=== PATIENT | male | born 1990 | race Caucasian/White ===

== ENCOUNTER 2017-02-03 05:58 | Day surgery (SDC) | payer BC ==
--- NOTE | ~2017-02-03 | EGD ---
EGD REPORT [facility] [address] [address] NAME: RANDY MUNOZ : [birth year] STATUS : REG [facility] [place] PAT#: [id number] AGE: 26 ADM/REG DATE : 02/03/17 MR#: [id number] REPORT SERV DATE: 02/03/17 DICTATED BY: MADI ARCINIEGA DATE: 02/03/17 REPORT STATUS : Draft [facility]ANSCRIBED BY: [facility] DATE: 02/03/17 Endoscopy Center Patient Name: Randy Munoz Date of : 1990 Attending MD: MADI ARCINIEGA, Procedure Date No Time: 02/03/2017 Procedure: Upper GI endoscopy Indications: Endoscopy to assess diarrhea in patient suspected of having celiac disease, Endoscopy to assess diarrhea in patient suspected of having disease of the small-bowel Referring MD: Vijay Maxwell Medicines: Monitored Anesthesia Care Complications: No immediate complications. Estimated blood loss: None. Procedure: Pre-Anesthesia Assessment: - ASA Grade Assessment: III - A patient with severe systemic disease. After obtaining informed consent, the endoscope was passed under direct vision. Throughout the procedure, the patient's blood pressure, pulse, and oxygen saturations were monitored continuously. The GIF [id number] was introduced through the mouth, and advanced to the second part of duodenum. The upper GI endoscopy was accomplished without difficulty. The patient tolerated the procedure well. Findings: The esophagus was normal. Patchy mild inflammation characterized by erythema was found in the entire examined stomach. Biopsies were taken with a cold forceps for histology. Verification of patient identification for the specimen was done. Estimated blood loss was minimal. The cardia and gastric fundus were normal on retroflexion. The examined duodenum was normal. Multiple biopsies were obtained in the 2nd part of the duodenum with cold forceps for histology. Impression: - Normal esophagus. - Gastritis. Biopsied. - Normal examined duodenum. - Multiple biopsies were obtained in the 2nd part of the duodenum. Recommendation: - Patient has a contact number available for emergencies. The signs and symptoms of potential delayed complications were discussed with the patient. Return to normal activities tomorrow. Written discharge EGD REPORT [facility] [address] [address] NAME: RANDY MUNOZ : [birth year] STATUS : REG [facility]#: [id number] AGE: 26 ADM/REG DATE : 02/03/17 MR#: [id number] REPORT SERV DATE: 02/03/17 DICTATED BY: MADI ARCINIEGA DATE: 02/03/17 REPORT STATUS : Draft TRANSCRIBED BY: [employer] DATE: 02/03/17 instructions were provided to the patient. - Return to previous diet. - Continue present medications. - Await pathology results. Procedure Code(s): --- Professional --- 43407, Esophagogastroduodenoscopy, flexible, transoral; with biopsy, single or multiple Diagnosis Code(s): --- Professional --- K29.70, Gastritis, unspecified, without bleeding R19.7, Diarrhea, unspecified CPT copyright 2013 [employer]. All rights reserved. The codes documented in this report are preliminary and upon instant print operator review may be revised to meet current compliance requirements. MADI ARCINIEGA, 02/03/2017 7:31 AM Number of Addenda: 0 Note Initiated On: 02/03/2017 7:04 AM Scope Withdrawal Time 0 hours 0 minutes 0 seconds [address] [id number]
--- NOTE | ~2017-02-03 | EGD ---
EGD REPORT [facility] [address] [address] NAME: RANDY MUNOZ : [birth year] [place] [facility] [place] [id number] AGE: 26 ADM/REG DATE : 02/03/17 MR#: [id number] REPORT SERV DATE: 02/03/17 DICTATED BY: MADI ARCINIEGA DATE: 02/03/17 REPORT STATUS : Draft TRANSCRIBED BY: [employer] DATE: 02/03/17 Endoscopy Center Patient Name: Randy Munoz Date of : 1990 Attending MD: MADI ARCINIEGA, Procedure Date No Time: 02/03/2017 Procedure: Colonoscopy Indications: Chronic diarrhea Referring MD: Vijay Maxwell Medicines: Monitored Anesthesia Care Complications: No immediate complications. Estimated blood loss: None. Procedure: Pre-Anesthesia Assessment: - ASA Grade Assessment: III - A patient with severe systemic disease. After I obtained informed consent, the scope was passed under direct vision. Throughout the procedure, the patient's blood pressure, pulse, and oxygen saturations were monitored continuously. The CF [id number] was introduced through the anus and advanced to the terminal ileum. The colonoscopy was performed without difficulty. The patient tolerated the procedure well. The quality of the bowel preparation was adequate. Findings: The perianal and digital rectal examinations were normal. The terminal ileum appeared normal. Normal mucosa was found in the entire colon. Biopsies were taken with a cold forceps for histology. Verification of patient identification for the specimen was done. Estimated blood loss was minimal. Internal hemorrhoids were found during retroflexion and were Grade I (internal hemorrhoids that do not prolapse). Impression: - The examined portion of the ileum was normal. - Normal mucosa in the entire examined colon. Biopsied. - Internal hemorrhoids. Recommendation: - Return to previous diet. - Continue present medications. - Await pathology results. - Repeat colonoscopy for surveillance based on pathology results. Procedure Code(s): --- Professional --- 53558, Colonoscopy, flexible, proximal to splenic flexure; with biopsy, single or multiple EGD REPORT [facility] [address] [place] [address] [place]. [address] NAME: RANDY MUNOZ : [birth year] [place]US [place] [facility] [place] [id number] AGE: 26 ADM/REG DATE : 02/03/17 MR#: [id number] REPORT SERV DATE: 02/03/17 DICTATED BY: MADI ARCINIEGA DATE: 02/03/17 REPORT STATUS : Draft TRANSCRIBED BY: [employer] DATE: 02/03/17 Diagnosis Code(s): --- Professional --- K64.0, First degree hemorrhoids K52.9, Noninfective gastroenteritis and colitis, unspecified CPT copyright 2013 [employer]. All rights reserved. The codes documented in this report are preliminary and upon cpc coder review may be revised to meet current compliance requirements. MADI ARCINIEGA, 02/03/2017 7:32 AM Number of Addenda: 0 Note Initiated On: 02/03/2017 6:58 AM Scope Withdrawal Time 0 hours 6 minutes 4 seconds [address] [place] [address]
[~2017-02-03 05:58] MED LIST: LEXAPRO10 PO; LORTAB 5 PO; STRATTERA80 MG PO; [UNRECOGNIZED DRUG - OTHER] PO
== END 2017-02-03 23:59 | disposition home or self-care (01) ==
LOC: DMU 05:58
PROVIDERS: Internal Medicine Gastroenterology
PROC: 0DB98ZX Excision of Duodenum, Via Natural or Artificial Opening Endoscopic, Diagnostic (ICD-10-PCS; 2017-02-03)
PROC: 0DBE8ZX Excision of Large Intestine, Via Natural or Artificial Opening Endoscopic, Diagnostic (ICD-10-PCS; principal; 2017-02-03 07:00)
PROC: 0DB68ZX Excision of Stomach, Via Natural or Artificial Opening Endoscopic, Diagnostic (ICD-10-PCS; 2017-02-03 07:00)
DX: K90.0 Celiac disease (principal); K64.0 First degree hemorrhoids; F84.5 Asperger's syndrome; F32.9 Major depressive disorder, single episode, unspecified; F43.10 Post-traumatic stress disorder, unspecified; J45.909 Unspecified asthma, uncomplicated; E66.01 Morbid (severe) obesity due to excess calories; Z68.43 Body mass index [BMI] 50.0-59.9, adult; Z88.2 Allergy status to sulfonamides; Z90.49 Acquired absence of other specified parts of digestive tract; Z98.890 Other specified postprocedural states; Z79.899 Other long term (current) drug therapy
CPT/HCPCS: 88305

== ENCOUNTER 2017-05-01 11:51 | Emergency (ER) | payer BC ==
[2017-05-01 12:02] LABS: ASCORBIC ACID (UR NOT ORDER) NEG (NEG); BILIRUBIN, URINE NEGATIVE (NEG); ER URINALYSIS TAT 0 Hrs 10 Mins; KETONE, URINE NEGATIVE (NEG); LEUKOCYTE ESTERASE(NOT OR NEG (NEG); NITRITE (URINE) NEG (NEG); WBC (NOT ORDERED) (RFLEX) < 1 (0-5)
[2017-05-01 13:16] LABS: BASOPHILS 0.3 %; BASOPHILS ABSOLUTE 0.03 10/3/uL (0.0-0.16); EOSINOPHILS 1.3 %; EOSINOPHILS ABSOLUTE 0.15 10/3/uL (0.0-0.53); HEMATOCRIT 42.9 % (40.0-51.0); HEMOGLOBIN 14.5 g/dL (13.6-17.8); IMMATURE GRANULOCYTES 0.4 %; IMMATURE GRANULOCYTES ABSOLUTE 0.05 10/3/uL (0.0-0.11); LYMPHOCYTES ABSOLUTE 2.77 10/3/uL (0.67-4.30); MEAN CORPUS HGB CONC 33.8 g/dL (32.0-36.0); MEAN CORPUSCULAR HEMOGLOB 29.1 pg (26.0-34.0); MEAN CORPUSCULAR VOLUME 86.1 fL (80-100); MEAN PLATELET VOLUME 10.7 fL (9.2-13.0); MONOCYTES 5.1 %; MONOCYTES ABSOLUTE 0.59 10/3/uL (0.21-1.20); NEUTROPHILS 68.9 %; NEUTROPHILS ABSOLUTE 7.94 10/3/uL (2.02-8.40); PLATELET COUNT 288 10/3/uL (150-400); RBC DISTRIBUTION WIDTH 14.9 % (12.0-16.0); RED CELL COUNT 4.98 10/6/uL (4.7-6.1); WHITE BLOOD CELLS 11.5 10/3/uL (4.5-10.5)
[2017-05-01 13:19] LABS: ER CBC TAT 0 Hrs 00 Mins; MANUAL DIFF NO %
[2017-05-01 13:26] LABS: A/G RATIO 1.1 (0.7-1.9); ALBUMIN 3.6 G/DL (3.5-5.0); BUN (BLOOD UREA NITROGEN) 18 MG/DL (6-23); CALCIUM, SERUM 8.9 MG/DL (8.5-10.4); CHLORIDE, SERUM 110 MMOL/L (96-112); CO2 (CARBON DIOXIDE) 27 MMOL/L (24-34); CREATININE 0.87 MG/DL (0.70-1.30); GFR AFRICAN AMERICAN 137 ML/MIN (>=60); GFR NON AFRICAN AMERICAN 118 ML/MIN (>=60); GLOBULIN 3.3 G/DL (2.5-4.1); SGOT(AST) 24 U/L (5-40); SGPT(ALT) 47 U/L (5-65); SODIUM, SERUM 141 MMOL/L (135-148); TOTAL BILIRUBIN 0.2 MG/DL (0-1.2); TOTAL PROTEIN 6.9 G/DL (6.0-8.5)
[2017-05-01 13:28] LABS: ALKALINE PHOSPHATASE 74 U/L (45-117); GLUCOSE, SERUM 97 MG/DL (60-99)
== END 2017-05-01 14:11 | disposition home or self-care (01) ==
LOC: ER 11:51
PROVIDERS: Nurse Practitioner Acute Care
DX: A04.7 Enterocolitis due to Clostridium difficile (principal); F41.9 Anxiety disorder, unspecified; Z88.2 Allergy status to sulfonamides; Z91.010 Allergy to peanuts; Z79.899 Other long term (current) drug therapy
CPT/HCPCS: 71010; 80053; 81001; 83690; 85025; 96374; 99284; J2405